=== PATIENT | female | born 1935 | race Asian ===

== ENCOUNTER → 2018-03-16 | Outpatient (CLI) | payer MEDICARE, OTHER ==
[~2018-03-16] VITALS: Ht 142.2 cm; Wt 55.0 kg
[~2018-03-16] MED LIST: ASPI81 PO; CALC-1038 PO; CARV6 PO; FLUT16H NASAL; IBUP-2354 PO; LORA10TA7 PO; MONT10TA21 PO; TELM20 PO
[2018-03-16 13:00] VITALS: BP 151/53
== END | disposition home or self-care (01) ==
LOC: SRCNTR 12:47
PROVIDERS: ATTEND Internal Medicine Clinical Cardiac Electrophysiology
DX: R94.31 Abnormal electrocardiogram [ECG] [EKG] (principal)
CPT/HCPCS: 93005; G0463